=== PATIENT | male | born 1965 | race Caucasian/White ===

== ENCOUNTER 2024-01-22 13:44 | Emergency (ER) | payer MEDICARE, SELFPAY ==
[2024-01-22 13:52] VITALS: BP 198/99; PULSE 93; RESP 18; TEMP 37.3; O2SAT 100; BMI 25.8
--- NOTE | 2024-01-22 14:13 | EKG_ITS ---
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
[2024-01-22 14:26] LABS: Appearance Urine UA CLEAR; Bilirubin Urine UA NEGATIVE (NEGATIVE); Color Urine UA YELLOW; Glucose Urine UA NEGATIVE (Negative); Ketones Urine UA NEGATIVE (NEGATIVE); Leukocyte Esterase Urine UA NEGATIVE (NEGATIVE); Nitrite Urine UA NEGATIVE (Negative); Occult Blood Urine UA NEGATIVE (Negative); Protein Urine UA NEGATIVE (Negative); Urobilinogen Urine UA 0.2 E.U./dL (0.2); pH Urine UA 5.5 (4.5-8.0)
[2024-01-22 14:27] LABS: Ur Creatinine Normal (Normal); Ur Specific Gravity Normal (Normal); Urine pH Normal (Normal)
[2024-01-22 14:29] LABS: Bacteria Urine None Seen; Culture Indicated Urine Cult Not Indicated; RBC Urine None Seen (0-5/HPF); Squamous Epithelial Cell Urine None Seen (0-5/HPF); Urine Volume 10mL (spun); WBC Urine None Seen (0-5/HPF)
[2024-01-22 14:29] LABS: UR Morphine/Opiate cutoff 300 Negative (Negative); Urine Amphetamines Negative (Negative); Urine Barbiturates Negative (Negative); Urine Benzodiazepines Negative (Negative); Urine Cocaine Negative (Negative); Urine MDMA Negative (Negative); Urine Methadone Negative (Negative); Urine Methamphetamines Negative (Negative); Urine Oxycodone Negative (Negative); Urine Phencyclidine Negative (Negative); Urine Tetrahydrocannabinol Positive (Negative); Urine Tricyclic Antidepressant Negative (Negative)
[2024-01-22 14:44] LABS: Add Manual Diff / Slide Review NO; Basophils Absolute Auto 100 /uL (0-100); Basophils Percent Auto 0.8 % (0-2); Eosinophils Absolute Auto 0 /uL (0-450); Eosinophils Percent Auto 0.5 % (2-4); Hematocrit 38.1 % (41-53); Hemoglobin 12.8 g/dL (13.5-17.5); Lymphocytes Absolute Auto 1200 /uL (1100-4500); Lymphocytes Percent Auto 17.8 % (25-40); Mean Corpuscular HGB Conc 33.7 % (30-36); Mean Corpuscular Hemoglobin 29.7 PG (26-34); Monocytes Absolute Auto 700 /uL (0-900); Monocytes Percent Auto 9.6 % (3-14); Neutrophils Absolute Auto 4900 /uL (1500-7000); Neutrophils Percent Auto 71.3 % (50-75); Platelet Count 263 X10^3/uL (150-400); Red Blood Cell Count 4.33 X10^6/uL (4.5-5.9); Red Cell Distribution Width 13.7 % (11.6-14.8); White Blood Cell Count 6.8 X10^3/uL (4.5-11.0)
[2024-01-22 15:00] LABS: Acetaminophen < 10 ug/mL (10-30); Alanine Aminotransferase 16 IU/L (<50); Albumin 4.4 g/dL (3.5-5.0); Albumin Globulin Ratio 1.8 (1.0-2.8); Alkaline Phosphatase 91 U/L (38-126); Aspartate Aminotransferase 26 IU/L (17-59); BUN Creatinine Ratio 10.3 (6-22); Bilirubin Total 0.6 mg/dL (0.2-1.3); Blood Urea Nitrogen 8 mg/dL (9-20); Calcium 9.5 mg/dL (8.4-10.2); Carbon Dioxide 29 mmol/L (22-32); Chloride 100 mmol/L (98-107); Estimated Glomerular Filt Rate > 60 mL/min (>60); Ethanol (ETOH) < 10 mg/dL; Globulin 2.4 g/dL (1.7-4.1); Glucose 119 mg/dL (70-100); HEMOLYSIS < 15 (0-50); Potassium 3.2 mmol/L (3.4-5.1); Salicylate < 1.0 mg/dL (<20); Sodium 136 mmol/L (137-145); Total Protein 6.8 g/dL (6.3-8.2)
[2024-01-22 15:29] LABS: TSH w/ Reflex to FT4 0.48 uIU/mL (0.47-4.68)
[2024-01-22 16:11] VITALS: BP 200/94; PULSE 82; RESP 16; O2SAT 99
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
[2024-01-22] MEDS: POTASSIUM CHLORIDE 20 MEQ/15 ML UDC 40 MEQ PO (17:56)
--- NOTE | 2024-01-22 18:17 | CM.SWNOTE ---
ED DECK SCALER Note DECK SCALER calls [facility], it is reported they have beds and can review patient. DECK SCALER faxes clinicals for review. [facility] calls back and states that they would need patient's Potassium to be at 3.5 or higher in order to accept patient. DECK SCALER reviews this with ED provider and he order potassium for patient. DECK SCALER reviews this with patient and patient endorses he feels safe to go home with friends/ex . Patient states his preference is to not wait to get placement for BH. DECK SCALER provides patient with list of providers that accept his insurance. Patient states he believes his father is here Rick (ph. # [phone]), charge coordinator calls Rick and the phone number is not connected. DECK SCALER re-enters room and patient states that Michael (his ex-'s current spouse/his friend) who dropped him off could pick him up. (Ph. # [phone]) DECK SCALER calls with patient's consent and patient's ex answers the phone and states that Michael is helping a neighbor at the moment but could come and get patient shortly. DECK SCALER to provide patient with crisis mobile outreach contact information. DECK SCALER to call [facility] regarding patient's preference to d/c to home. Plan: patient to d/c to home with friends upon medical clearance per patient preference with outpatient resources provided.
[2024-01-22 18:46] VITALS: BP 175/91; PULSE 83; RESP 18; O2SAT 96
[2024-01-22 18:49] VITALS: BP 169/92; PULSE 83; RESP 16; O2SAT 98
== END 2024-01-22 18:49 | disposition home or self-care (01) ==
PROVIDERS: Emergency Medicine; Emergency Provider Emergency Medicine
DX: R44.0 Auditory hallucinations (principal); R07.9 Chest pain, unspecified
CPT/HCPCS: 36415; 80053; 80305; 80320; 80329; 81001; 84443; 85025; 93005; 93010; 99284; G0480